=== PATIENT | male | born 1955 | race African-American/Black ===

== ENCOUNTER 2025-04-15 23:04 | Emergency (ER) | payer OTHER ==
[~2025-04-15] VITALS: Ht 172.7 cm; Wt 75.0 kg
[2025-04-15 23:06] VITALS: BP 133/79; PULSE 69; RESP 16; TEMP 36.9; O2SAT 98
[2025-04-15 23:21] VITALS: O2SAT 99
== END 2025-04-15 23:55 | disposition left against medical advice (07) ==
LOC: ER 23:04
DX: I10 Essential (primary) hypertension (principal)
CPT/HCPCS: 93005; 99283